=== PATIENT | male | born 1955 | race Two or more races ===

== ENCOUNTER 2018-05-12 19:20 | Emergency (ER) | payer OTHER ==
[~2018-05-12] VITALS: Ht 180.3 cm; Wt 117.0 kg
[2018-05-12] MEDS ORDERED: ALBUTEROL/IPRATROPIUM 2.5MG/0.5MG, 3 ML ONE (19:59)
[2018-05-12] MEDS ORDERED: ALBUTEROL/IPRATROPIUM 2.5MG/0.5MG, 3 ML NPPB ONE (20:00)
[2018-05-12] MEDS ORDERED: SODIUM CHLORIDE FLUSH 10ML SYR IVF ONE (20:00)
[2018-05-12] MEDS ORDERED: methylPREDNISolone SOD SUCC 125 MG/2 ML ONE (20:23)
[2018-05-12] MEDS ORDERED: methylPREDNISolone SOD SUCC 125 MG/2 ML IVPush ONE (20:30)
[2018-05-12] MEDS ORDERED: ALBUTEROL SULFATE 2.5 MG/3 ML NPPB ONE (20:30)
[2018-05-12 20:38] LABS: BASOPHILS # (AUTO) 0.03 x10^3/uL (0-0.1); BASOPHILS % (AUTO) 0 % (0-1); EOSINOPHILS % (AUTO) 2 % (1-7); LYMPHOCYTES # (AUTO) 3.32 x10^3/uL (1-3.4); LYMPHOCYTES % (AUTO) 37 % (22-44); MD NO; MEAN CORPUSCULAR HEMOGLOBIN 31.3 pg (27.5-34.5); MEAN CORPUSCULAR HGB CONC 33.9 g/dL (33.2-36.2); MEAN CORPUSCULAR VOLUME 92.5 fL (81-97); MEAN PLATELET VOLUME 8.4 fL (7.4-10.4); MONOCYTES # (AUTO) 0.64 x10^3/uL (0.2-0.8); MONOCYTES % (AUTO) 7 % (2-9); NEUTROPHILS # (AUTO) 4.71 x10^3/uL (1.8-6.8); NEUTROPHILS % (AUTO) 53 % (42-75); PLATELET COUNT 258 x10^3/uL (130-400); RED BLOOD COUNT 4.95 x10^6/uL (4.38-5.82); RED CELL DISTRIBUTION WIDTH 13.2 % (9.4-14.8)
[2018-05-12 20:42] LABS: INTERNATIONAL NORMALIZED RATIO 0.96 (0.93-1.1); PROTHROMBIN TIME 9.9 Seconds (9.6-11.5)
[2018-05-12 20:44] LABS: ALBUMIN 4.3 g/dL (3.4-5.0); ANION GAP 6 mmol/L (5-15); CALCIUM 8.7 mg/dL (8.5-10.1); CHLORIDE 106 mmol/L (98-107)
[2018-05-12 20:50] LABS: ALANINE AMINOTRANSFERASE 41 U/L (12-78); ALKALINE PHOSPHATASE 78 U/L (45-117); BILIRUBIN,TOTAL 0.4 mg/dL (0.2-1.0); CREATININE 1.99 mg/dL (0.7-1.3); TOTAL PROTEIN 8.4 g/dL (6.4-8.2); TROPONIN I < 0.015 ng/mL (0.000-0.045)
[2018-05-12] MEDS ORDERED: ALBU0.63 NEB (20:59)
[2018-05-12] MEDS ORDERED: METF500T27 PO (20:59)
[2018-05-12] MEDS ORDERED: ASPI-496 PO (20:59)
[2018-05-12] MEDS ORDERED: BLOOD PRESSURE MED (20:59)
[2018-05-12] MEDS ORDERED: ALBUTEROL SULFATE 2.5 MG/3 ML ONE (21:00)
[2018-05-12 21:22] VITALS: BP 136/74
== END 2018-05-12 21:25 | disposition home or self-care (01) ==
LOC: ED 20:56
DX: J44.1 Chronic obstructive pulmonary disease with (acute) exacerbation (principal); R79.1 Abnormal coagulation profile
CPT/HCPCS: 36415; 71045; 80053; 83880; 84484; 85025; 85610; 85730; 93005; 94640; 96374; 99285; J2930; J7613; J7620